=== PATIENT | male | born 1960 | race Caucasian/White ===

== ENCOUNTER → 2021-01-10 14:49 | Outpatient (CLI) | payer BC, SELFPAY ==
--- NOTE | 2021-01-10 03:10 | ECG_ITS ---
APPROVED REPORT Exam: Resting ECG HR:79 bpm ECG Measurements Heart Rate 79 AXES MS 224 P 65 QRSd 100 QRS 57 QT 378 T -38 QTc 433 Conclusion Sinus rhythm with 1st degree AV block Isolated q in III. Late r wave progresision Abnormal ECG Electronically signed by : Jeramy Tate MD 01/10/2021 17:15:23
--- NOTE | 2021-01-10 15:17 | XR_ITS ---
PROCEDURE: XR CHEST 2V CLINICAL HISTORY: RHONCHI OF RT LUNG COMPARISON: No exams were available for comparison FINDINGS: The cardiomediastinal silhouette and pulmonary vascularity are within normal limits. The lungs are clear without infiltrates, suspicious nodules, or pleural effusions. No acute bony abnormalities. IMPRESSION: No acute findings. Dictated by: Hong Tolbert MD 01/10/2021 15:37 Hong Tolbert MD in [facility] 01/10/2021 15:37
== END ==
PROVIDERS: PCP Nurse Practitioner; Visit Provider Nurse Practitioner
DX: R01.1 Cardiac murmur, unspecified (principal); R09.89 Other specified symptoms and signs involving the circulatory and respiratory systems
CPT/HCPCS: 71046; 93005

== ENCOUNTER → 2022-12-10 09:42 | Outpatient (CLI) | payer BC, SELFPAY ==
[2022-12-10 18:08] LABS: Eosinophils % 1.1 % (0.1-12.0); Hemoglobin 12.6 g/dL (14.1-18.0); Lymphocytes # 1.4 K/mm3 (0.7-4.5); Lymphocytes % 35.2 % (10-50); Mean Corpuscular HGB Conc 29.9 g/dL (31.8-35.4); Mean Corpuscular Hemoglobin 26.5 pg (27.0-31.2); Mean Corpuscular Volume 88.6 fl (80-94); Mean Platelet Volume 8.3 fl (7.4-10.4); Monocytes # 0.4 K/mm3 (0.1-1.0); Monocytes % 10.4 % (1.7-9.3); Neutrophils % 52.3 % (37.0-80.0); Platelet Count 178 K/mm3 (142-424); Red Blood Count 4.73 M/mm3 (4.60-6.20); Red Cell Distribution Width 17.7 % (11.5-17.5); White Blood Count 3.9 K/mm3 (4.8-10.8)
[2022-12-10 18:27] LABS: Alanine Aminotransferase 34 U/L (12-78); Albumin Level 4.9 g/dl (3.5-5.0); Albumin/Globulin Ratio 1.7 (1.1-1.8); Alkaline Phosphatase 78 U/L (38-126); Anion Gap 15.5 mEq/L (5-15); Aspartate Amino Transferase 48 U/L (17-59); Bilirubin,Total 0.4 mg/dl (0.2-1.3); Blood Urea Nitrogen 19 mg/dl (9-20); Calcium 9.8 mg/dl (8.4-10.2); Carbon Dioxide 29 mmol/L (22.0-30.0); Chloride 97 mmol/L (98-107); Chol/HDL Ratio 3.3 (1-3.5); Cholesterol 181 mg/dl (140-200); Estimated Glomerular Filt Rate 61 ml/min (>60); GFR (African American) 74 ML/MIN (>60); Globulin 2.9 g/dL (1.3-3.2); Glucose 221 mg/dl (74-100); HDL Cholesterol 55 mg/dl (40-60); Potassium 4.5 mmoL/L (3.5-5.1); Sodium 137 mmol/L (136-145); Total Protein,Serum 7.8 g/dl (6.3-8.2); Triglycerides 217 mg/dl (30-150); VLDL Cholesterol 43 mg/dL (0-40)
[2022-12-10 18:33] LABS: Hemoglobin A1C 7.2 % (4.0-6.0)
[2022-12-10 18:35] LABS: Creatinine,Urine Random 13 mg/dL (Not Estab.)
[2022-12-10 18:38] LABS: Microalbumin/Creatinine Ratio 203.8
[2022-12-10 18:46] LABS: 25-OH Vitamin D, Total 67.7 ng/mL (30-100)
[2022-12-10 19:00] LABS: Prostate Specific Ag Screen 1.1 ng/ml (0.0-4.0); Thyroid Stimulating Hormone 2.72 uIU/mL (0.465-4.68)
[2022-12-10 19:19] LABS: Vitamin B12 490 pg/mL (239-931)
== END ==
PROVIDERS: PCP Nurse Practitioner; Visit Provider Nurse Practitioner
DX: E03.9 Hypothyroidism, unspecified (principal); E11.9 Type 2 diabetes mellitus without complications; E55.9 Vitamin D deficiency, unspecified; E78.5 Hyperlipidemia, unspecified; I10 Essential (primary) hypertension; I73.9 Peripheral vascular disease, unspecified; N18.9 Chronic kidney disease, unspecified; Z79.4 Long term (current) use of insulin
CPT/HCPCS: 80053; 80061; 82043; 82306; 82570; 82607; 83036; 84439; 84443; 85025; G0103

== ENCOUNTER → 2023-02-15 09:00 | Outpatient (CLI) | payer BC, SELFPAY ==
[2023-02-15 18:29] LABS: Basophils % 0.6 % (0.1-2.0); Eosinophils # 0.1 K/mm3 (0.0-0.4); Eosinophils % 1.1 % (0.1-12.0); Hematocrit 48.1 % (42.0-52.0); Hemoglobin 14.7 g/dL (14.1-18.0); Lymphocytes # 1.5 K/mm3 (0.7-4.5); Lymphocytes % 32.8 % (10-50); Mean Corpuscular HGB Conc 30.5 g/dL (31.8-35.4); Mean Corpuscular Hemoglobin 28.1 pg (27.0-31.2); Mean Corpuscular Volume 91.8 fl (80-94); Mean Platelet Volume 8.9 fl (7.4-10.4); Monocytes # 0.4 K/mm3 (0.1-1.0); Monocytes % 8.3 % (1.7-9.3); Neutrophils # 2.7 K/mm3 (1.8-7.8); Neutrophils % 57.2 % (37.0-80.0); Platelet Count 160 K/mm3 (142-424); Red Blood Count 5.24 M/mm3 (4.60-6.20); Red Cell Distribution Width 15.9 % (11.5-17.5); White Blood Count 4.7 K/mm3 (4.8-10.8)
[2023-02-15 18:34] LABS: Alanine Aminotransferase 43 U/L (12-78); Albumin Level 4.8 g/dl (3.5-5.0); Albumin/Globulin Ratio 1.5 (1.1-1.8); Alkaline Phosphatase 70 U/L (38-126); Aspartate Amino Transferase 42 U/L (17-59); Bilirubin,Total 0.5 mg/dl (0.2-1.3); Blood Urea Nitrogen 21 mg/dl (9-20); Calcium 9.2 mg/dl (8.4-10.2); Carbon Dioxide 30 mmol/L (22.0-30.0); Chloride 95 mmol/L (98-107); Chol/HDL Ratio 3.1 (1-3.5); Cholesterol 185 mg/dl (140-200); Estimated Glomerular Filt Rate 61 ml/min (>60); GFR (African American) 74 ML/MIN (>60); Globulin 3.2 g/dL (1.3-3.2); Glucose 168 mg/dl (74-100); HDL Cholesterol 60 mg/dl (40-60); Sodium 135 mmol/L (136-145); Triglycerides 199 mg/dl (30-150); VLDL Cholesterol 40 mg/dL (0-40)
[2023-02-15 18:45] LABS: Direct LDL Cholesterol 74.57 mg/dL (100-129)
[2023-02-15 18:51] LABS: Free T4 (Free Thyroxine) 1.11 ng/dl (0.78-2.19); Hemoglobin A1C 8.3 % (4.0-6.0)
[2023-02-15 18:52] LABS: 25-OH Vitamin D, Total 57.3 ng/mL (30-100)
[2023-02-15 19:05] LABS: Thyroid Stimulating Hormone 2.11 uIU/mL (0.465-4.68)
[2023-02-15 20:11] LABS: Vitamin B12 445 pg/mL (239-931)
== END ==
PROVIDERS: PCP Nurse Practitioner; Visit Provider Nurse Practitioner
DX: I10 Essential (primary) hypertension (principal); D64.9 Anemia, unspecified; E03.9 Hypothyroidism, unspecified; E11.9 Type 2 diabetes mellitus without complications; E55.9 Vitamin D deficiency, unspecified; E78.5 Hyperlipidemia, unspecified; N18.9 Chronic kidney disease, unspecified; Z12.5 Encounter for screening for malignant neoplasm of prostate; Z79.4 Long term (current) use of insulin
CPT/HCPCS: 80053; 80061; 82306; 82607; 83036; 84439; 84443; 85025